=== PATIENT | male | born 2000 | race Two or more races ===

== ENCOUNTER 2025-02-09 03:56 | Emergency (ER) | payer OTHER, SELFPAY ==
[2025-02-09 03:59] VITALS: BP 150/84; PULSE 69; RESP 19; TEMP 36.7; O2SAT 97; BMI 29.6
--- NOTE | 2025-02-09 05:07 | EDNOTE_ITS ---
ED Wound/Laceration-RME/HPI General Chief Complaint: Wound/Laceration Stated Complaint: LAC TO FACE JUST L OR L EYE Time Seen by Provider: 02/09/25 04:22 Arrival date/time: 02/09/25 03:56 RME / HPI RME / HPI narrative: 24-year-old male presents to the ED with a complaint of left lateral eyelid laceration that occurred at work just prior to arrival. 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 He denies any loss of consciousness. He denies neck pain, or any visual or hearing changes. His last tetanus was approximately 4-1/2 years ago. Related Data Allergies Allergy/AdvReac Type Severity Reaction Status Date / Time No Known Allergies Allergy Verified 02/09/25 04:03 Review of Systems Review of Systems Systems Reviewed: All systems reviewed, normal except as documented Past Medical History Social History SMOKING STATUS: Never smoker ED Exam Narrative Physical exam: 24-year-old male, no acute distress, less than 1.0 cm laceration noted to the left upper lateral eyelid area. Pupils are PERRL, EOMs intact, no entrapment noted. Cranial nerves II through XII grossly intact. No functional deficit. Course Course Course Narrative: Wound was cleansed with saline and sterile gauze. Wound was then closed with Dermabond with good wound edge approximation. Dermabond dry by the time of discharge. Patient tolerated procedure well. Work comp paperwork completed. Patient discharged home in stable and improved condition. Vital Signs Vital signs: Vital Signs Temperature 98.0 F 02/09/25 03:59 Pulse Rate 69 02/09/25 03:59 Respiratory Rate 19 02/09/25 03:59 Blood Pressure 150/84 H 02/09/25 03:59 Pulse Oximetry (%) 97 02/09/25 03:59 Oxygen Delivery Method Room Air 02/09/25 03:59 Wound / Laceration Diagnosis Most likely diagnosis given after review of the tests above:: Left lateral upper eyelid/eyebrow laceration Admission Indicated Admission indicated?: not indicated Explain why admission is indicated or not indicated:: Patient is stable for discharge Admission Request Was there a request for admission?: No Disposition Plan Disposition Plan: Discharge Discharge Attestation Discharge Attestation: The patient and all family members were given an opportunity to ask questions and understood the discharge instructions. Discharge instructions specifically effects, indications for sooner follow up or return to the emergency department, and the expected course of current diagnosis. Patient condition: Stable Discharge Plan Plan Patient Disposition: HOME (Self Care) Discharge Disposition comment: Stable and improved Problem List Clinical Impression: Laceration, Glued skin wound Patient/Caregiver Discharge Instructions Education Materials: ED Laceration, Face: Skin Glue Print Language: Setswana Stand Alone Forms: Tete Award Info., Patient Portal Info Letter PA/AUTO LEASING MANAGER Supervising Physician PA/AUTO LEASING MANAGER Supervising Physician: Dr. Mcmahan
== END 2025-02-09 05:57 | disposition home or self-care (01) ==
LOC: SERX 05:21
PROVIDERS: Emergency Provider Emergency Medicine
DX: S01.112A Laceration without foreign body of left eyelid and periocular area, initial encounter (principal); W22.8XXA Striking against or struck by other objects, initial encounter; Y93.89 Activity, other specified; Y92.63 Factory as the place of occurrence of the external cause; Y99.0 Civilian activity done for income or pay
CPT/HCPCS: 12011; 99283